=== PATIENT | female | born 1980 | race Asian ===

== ENCOUNTER 2017-11-07 15:01 | Outpatient (CLI) | payer BC ==
[2017-11-07 15:18] LABS: BASOPHILS # (AUTO) 0.1 10^3/uL (0.0-0.1); BASOPHILS % (AUTO) 0.5 %; EOSINOPHILS # (AUTO) 0.1 10^3/uL (0.0-0.7); EOSINOPHILS % (AUTO) 0.9 %; HGB - HEMOGLOBIN 10.3 g/dL (12.0-16.0); LYMPHOCYTES # (AUTO) 2.6 10^3/uL (1.5-3.5); LYMPHOCYTES % (AUTO) 25.9 %; MEAN CORPUSCULAR HEMOGLOBIN 26.4 pg (27.0-31.0); MEAN CORPUSCULAR HGB CONC 33.2 g/dL (32.0-36.0); MEAN CORPUSCULAR VOLUME 79.6 fL (81.0-99.0); MEAN PLATELET VOLUME 7.9 fL (7.9-10.8); MONOCYTES # (AUTO) 0.4 10^3/uL (0.0-1.0); MONOCYTES % (AUTO) 4.3 %; NEUTROPHILS # (AUTO) 6.9 10^3/uL (1.5-6.6); NEUTROPHILS % (AUTO) 68.4 %; PLT - PLATELET COUNT 423 10^3/uL (130-450); RED BLOOD COUNT 3.89 10^6/uL (4.20-5.40); RED CELL DISTRIBUTION WIDTH 14.2 % (12.0-15.0); WHITE BLOOD COUNT 10.1 x10^3/uL (4.8-10.8)
== END 2017-11-07 15:02 | disposition home or self-care (01) ==
LOC: LAB 15:01
PROVIDERS: ATTEND Obstetrics & Gynecology
DX: Z01.812 Encounter for preprocedural laboratory examination (principal); O02.1 Missed abortion
CPT/HCPCS: 36415; 85025

== ENCOUNTER 2017-11-08 06:17 | Day surgery (SDC) | payer BC ==
[2017-11-08 06:49] LABS: HCG UR QUAL POSITIVE
[2017-11-08] MEDS ORDERED: CELECOXIB 100 MG CAPSULE PO ONE (06:58)
[2017-11-08] MEDS ORDERED: LACTATED RINGERS 1,000 ML IV ONE ×3 (07:05→08:46)
--- NOTE | 2017-11-08 07:33 | PREOP HISTORY & PHYSICAL ---
DATE OF ADMISSION: 11/08/2017 IDENTIFICATION: A 37-year-old G2, P2-0-0-1 with a missed . LMP was 09/2017 with 10/18/2017 pole measuring 5 weeks 3 days. HISTORY OF PRESENT ILLNESS: The patient is a patient of [facility] who first established her with us on 10/18/2017. Sure LMP was . At that time, a single viable intrauterine with pole measured 5 weeks 3 days, consistent with LMP. The patient stated that she would like termination of . She represented on 10/24/2017 and received 800 mcg of Cytotec. Followup visit on 10/26/2017 showed that she still had not passed the . She was then given a dose of mifepristone x1 and Cytotec 400 mcg x1 and then 800 mcg x1 a week later. An ultrasound at that time showed a large blood clot filling the uterus. No gestational sac nor pole was seen. A 11/02/2017 visit showed that patient still had a missed AB. She had mifepristone 200 mcg and Cytotec 200 mcg x4 tablets. A bedside ultrasound showed a large clot filling the uterus and what appears to be a pole in the cervical os with absence of cardiac activity. The patient still reported that her blood flow was quite slow and by now had decided she wanted to terminate the now via surgery. I discussed with the patient the risks, benefits, alternatives, indications, expectations of the suction dilatation and curettage empirically including discussion of the risk of hemorrhage, infection, and uterine perforation. After all of the patient's questions were answered to her satisfaction, she verbalized her desire to proceed with surgery. Consent forms have been signed. Currently the patient is doing well and without complaint. She denies any nausea, vomiting, fevers, chills, diarrhea, or constipation. She is planning to visit her in- laws in [place], [place] next week. PAST MEDICAL HISTORY: None. She denies hypertension, diabetes, thyroid disease , asthma or depression. PAST SURGICAL HISTORY 1. 2014: [place] teeth extraction. 2. 2012: delivery secondary to occiput posterior position. Her son weighed 6 pounds 4 ounces. 3. 2004: She had a breast augmentation. ALLERGIES: CECLOR, WHICH SHE HAS HIVES, ITCHING, AND VOMITING. MEDICATIONS: None. SOCIAL HISTORY: Denies any tobacco or illicit drug use. She does consume alcohol on a social basis. Her primary care provider is ALLY Hernandez. [facility] is her pharmacy of choice. Her son is Amanda who is age 5. The patient is , and she is a teacher at the [employer]. Ethnically, she is [place], , and Filipina. PAST OBSTETRICAL HISTORY: delivery x1 at term. She and her are not currently using contraception, and he is considering getting a vasectomy once he gets healthcare insurance. She did fine on low-dose control pills in the past. PAST GYNECOLOGIC HISTORY: One abnormal Pap smear in 2009, and the colposcopy was negative. Pap smears have been normal since. She denies any sexually transmitted diseases. Menses happen on a monthly basis, and she bleeds for 4 days. She denies painful or heavy menses. FAMILY HISTORY: Maternal side shows breast cancer. REVIEW OF SYSTEMS: Negative unless otherwise stated. OBJECTIVE VITAL SIGNS: Weight is 135 pounds. Height is 62 inches. BMI is 24.7. Blood pressure 120/62. GENERAL: The patient is a well-developed, well-nourished, multi-ethnic female in no apparent distress. She is alert and oriented x3. CARDIOVASCULAR: Rate is regular. No murmurs or rubs. PULMONARY: Lungs are clear to auscultation bilaterally. ABDOMEN: Soft, nontender. No masses, rebound, rigidity, or guarding. LABORATORY DATA: On 11/07/2017, white count of 10.1, H and H of 10.3 and 31.0, platelets 423. ASSESSMENT 1. A 37-year-old G2, P1-0-0-1 with a missed less than 5 weeks' gestation. 2. Status post 3 attempts of medical that have failed. PLAN 1. I discussed with the patient the risks, benefits, alternatives, indications , expectations of surgery. After all of her questions were answered to her satisfaction, she verbalized desire to proceed with surgery. Consent forms have been signed. We will proceed to a scheduled 11/08/2017 suction dilatation and curettage. 2. We will need to check the patient's ABO and Rh status. We will give RhoGAM as appropriate. 3. I advised the patient to take Motrin and Tylenol for her main form of pain control. She has been given a prescription for Vicodin #10 tablets for any breakthrough pain. 4. The patient should call should she have any worsening fevers, chills, abdominal pain or vaginal bleeding. 5. The patient is to follow up with myself at [facility] in 2 weeks for a routine postop visit. 6. Anticipate having the patient see Judy Altamirano for contraception after completion of her surgery. TD: 11/07/2017 16:49 MTDLaney
[2017-11-08] MEDS ORDERED: MIDAZOLAM 2 MG/2 ML VIAL IVP ONE (08:00)
[2017-11-08] MEDS ORDERED: PROPOFOL 200 MG/20 ML VIAL IVP ONE (08:00)
[2017-11-08] MEDS ORDERED: fentaNYL 100 MCG/2 ML VIAL IVP ONE (08:00)
[2017-11-08] MEDS ORDERED: LIDOCAINE-MPF 2% 5 ML VIAL IM ONE (08:00)
[2017-11-08] MEDS ORDERED: DOXYCYCLINE 100 MG TABLET PO ONE ×2 (08:00→09:00)
[2017-11-08] MEDS ORDERED: ONDANSETRON 4 MG/2 ML VIAL IVP ONE (08:00)
[2017-11-08] MEDS ORDERED: DEXAMETHASONE 4 MG/ML VIAL IVP ONE (08:00)
--- NOTE | 2017-11-08 08:17 | OPERATIVE REPORT ---
Operative Report - Other Other Information/Narrative: Date of Operation: 11/08/2017 Surgeon: Ellen Villanueva DO FACOG Poly Area Supervisor: None Weblogic Administrator: Pacheco Warren CRNA Anesthesia: LMA Pre-Op Dx: 1. 37 yo 2. Missed AB Post-Op Dx: 1. 37 yo 2. Missed AB Procedure: Suction dilation and curettage Findings: Products of conception Specimens: Endometrial curettings Drains: None EBL: <5 mL Complications: None OP Note Dictation #: [id number]
[2017-11-08] MEDS ORDERED: ONDANSETRON 4 MG/2 ML VIAL ONE (09:13)
[2017-11-08 09:43] VITALS: BP 110/60
--- NOTE | 2017-11-08 11:32 | OPERATIVE REPORT ---
DATE OF OPERATION: 11/08/2017 SURGEON: Ellen Villanueva DO, FACOG. COMPLAINT SUPERVISOR: None. HVAC FIELD SERVICE TECHNICIAN: Basil Warren CRNA. ANESTHESIA: General endotracheal tube. PREOPERATIVE DIAGNOSES 1. A 37-year-old G2, P1-0-0-1, with a less than 5 week intrauterine . 2. Missed . POSTOPERATIVE DIAGNOSES 1. A 37-year-old G2, P1-0-0-1, with a less than 5 week intrauterine . 2. Missed . PROCEDURES: Suction dilatation and curettage. FINDINGS: Products of conception. SPECIMENS REMOVED: Endometrial curettings. DRAINS: None. ESTIMATED BLOOD LOSS: Less than 5 mL. COMPLICATIONS: None. BRIEF HISTORY: This is a patient of [facility] [place], who was found to have an early . She was given several rounds of Cytotec and mifepristone. The patient unfortunately did not pass the spontaneously. At this point in time, she desired a suction dilatation and curettage for definitive completion of her . I discussed the patient the risks, benefits, alternatives, indications, expectations of a suction dilatation and curettage. Included discussion of the risk of hemorrhage, infection and uterine perforation. After all of the patient's questions were answered to her satisfaction, she verbalized her desire to proceed with surgery. Consent forms have been signed. It was noted today that her blood type is O positive, and hemoglobin is 10. OPERATION IN DETAIL: The patient was identified and consented, taken to the operating room where IV access was already in place. She was then given sequential compression devices, which were placed on the lower extremities and turned on. The patient was then given satisfactory LMA anesthesia as per Basil Warren CRNA. The patient was then prepped and draped in normal sterile fashion in lithotomy position using the Yellofin stirrups. Timeout was performed, which correctly identified the patient, site of the procedure, and procedure itself. The patient did receive Celebrex and doxycycline in ambulatory surgery prior to going to the operating room. An open-sided speculum was placed in the vagina, and a single-tooth tenaculum was placed on top of the anterior lip of the cervix. A large blood clot with possible tissue was already dilating the cervix. This was removed with ring forceps. Next, a curved #7 rigid suction curette was used to curette the endometrium. Satisfactory uterine cri was palpated throughout the entire endometrium. No bleeding was seen. All instruments were removed. The cervix and vagina were noted to be hemostatically stable. This concluded the procedure. The patient was then taken to recovery room in stable condition. She will be discharged to home later today after postoperative criteria are met. She will be given another dose of doxycycline prior to going home. The patient already has prescriptions for Vicodin for any breakthrough pain that lofv-tpz-dydgzep medications do not take care of. The patient is to see me at [facility] [place] in 2 weeks for routine postop check. She is to call if she has any worsening, fevers, chills, abdominal pain or vaginal bleeding. TD: 11/08/2017 08:25 [email or web address]
== END 2017-11-08 06:18 | disposition home or self-care (01) ==
LOC: SDS 06:17
PROVIDERS: ATTEND Obstetrics & Gynecology
PROC: 10D17Z9 Manual Extraction of Products of Conception, Retained, Via Natural or Artificial Opening (ICD-10-PCS; principal; 2017-11-08 07:30)
DX: O02.1 Missed abortion (principal)
CPT/HCPCS: 59820; 81025; 86900; 86901; A9270; J7120

== ENCOUNTER 2018-03-24 08:52 | Outpatient (CLI) | payer BC ==
[2018-03-24 09:32] LABS: ALBUMIN 3.7 g/dL (3.2-5.5); BILIRUBIN,TOTAL 0.6 mg/dL (0.2-1.0); CALCIUM 8.8 mg/dL (8.5-10.3); CREATININE 0.9 mg/dL (0.4-1.0); TOTAL PROTEIN 7.4 g/dL (6.7-8.2)
[2018-03-24 09:35] LABS: BASOPHILS # (AUTO) 0.1 10^3/uL (0.0-0.1); BASOPHILS % (AUTO) 0.7 %; EOSINOPHILS # (AUTO) 0.1 10^3/uL (0.0-0.7); EOSINOPHILS % (AUTO) 1.3 %; HGB - HEMOGLOBIN 12.6 g/dL (12.0-16.0); LYMPHOCYTES # (AUTO) 1.9 10^3/uL (1.5-3.5); LYMPHOCYTES % (AUTO) 23.2 %; MEAN CORPUSCULAR HGB CONC 34.2 g/dL (32.0-36.0); MEAN PLATELET VOLUME 8.9 fL (7.9-10.8); MONOCYTES # (AUTO) 0.4 10^3/uL (0.0-1.0); MONOCYTES % (AUTO) 4.7 %; NEUTROPHILS # (AUTO) 5.8 10^3/uL (1.5-6.6); NEUTROPHILS % (AUTO) 70.1 %; PLT - PLATELET COUNT 342 10^3/uL (130-450); RED BLOOD COUNT 4.86 10^6/uL (4.20-5.40); RED CELL DISTRIBUTION WIDTH 14.1 % (12.0-15.0); WHITE BLOOD COUNT 8.2 x10^3/uL (4.8-10.8)
== END 2018-03-24 08:53 | disposition home or self-care (01) ==
LOC: LAB 08:52
PROVIDERS: ATTEND Nurse Practitioner Primary Care
DX: Z00.00 Encounter for general adult medical examination without abnormal findings (principal); D56.3 Thalassemia minor; Z79.899 Other long term (current) drug therapy
CPT/HCPCS: 36415; 80053; 85025

== ENCOUNTER 2018-03-29 09:30 | Outpatient (CLI) | payer BC | END 2018-03-29 09:31 | disposition home or self-care (01) | LOC: LAB.R 09:30 | PROVIDERS: ATTEND Nurse Practitioner Primary Care | DX: G47.62 Sleep related leg cramps (principal); D56.3 Thalassemia minor | CPT/HCPCS: 82728 ==

== ENCOUNTER 2018-12-01 09:31 | Outpatient (CLI) | payer BC ==
[2018-12-01 10:03] LABS: HGB - HEMOGLOBIN 13.2 g/dL (12.0-16.0); MEAN CORPUSCULAR HEMOGLOBIN 26.4 pg (27.0-31.0); MEAN CORPUSCULAR HGB CONC 33.1 g/dL (32.0-36.0); MEAN CORPUSCULAR VOLUME 79.8 fL (81.0-99.0); MEAN PLATELET VOLUME 10.8 fL (7.9-10.8); RED CELL DISTRIBUTION WIDTH 13.8 % (12.0-15.0); WHITE BLOOD COUNT 8.6 x10^3/uL (4.8-10.8)
== END 2018-12-01 09:32 | disposition home or self-care (01) ==
LOC: LAB 09:31
PROVIDERS: ATTEND Nurse Practitioner
DX: R53.83 Other fatigue (principal); D56.3 Thalassemia minor
CPT/HCPCS: 36415; 82728; 85027

== ENCOUNTER 2019-03-24 08:41 | Outpatient (CLI) | payer BC ==
[2019-03-24 09:07] LABS: BASOPHILS % (AUTO) 0.5 %; EOSINOPHILS # (AUTO) 0.2 10^3/uL (0.0-0.7); HGB - HEMOGLOBIN 13.1 g/dL (12.0-16.0); LYMPHOCYTES # (AUTO) 1.6 10^3/uL (1.5-3.5); MEAN CORPUSCULAR HEMOGLOBIN 25.6 pg (27.0-31.0); MEAN CORPUSCULAR HGB CONC 32.3 g/dL (32.0-36.0); MEAN CORPUSCULAR VOLUME 79.1 fL (81.0-99.0); MEAN PLATELET VOLUME 10.5 fL (7.9-10.8); MONOCYTES # (AUTO) 0.5 10^3/uL (0.0-1.0); MONOCYTES % (AUTO) 5.4 %; NEUTROPHILS % (AUTO) 72.7 %; PLT - PLATELET COUNT 337 10^3/uL (130-450); RED BLOOD COUNT 5.12 10^6/uL (4.20-5.40); RED CELL DISTRIBUTION WIDTH 14.2 % (12.0-15.0); WHITE BLOOD COUNT 8.3 x10^3/uL (4.8-10.8)
[2019-03-24 09:20] LABS: ALBUMIN 4.1 g/dL (3.2-5.5); ALBUMIN/GLOBULIN RATIO 1.1 (1.0-2.2); BILIRUBIN,TOTAL 0.7 mg/dL (0.2-1.0); CALCIUM 8.8 mg/dL (8.5-10.3); CREATININE 0.8 mg/dL (0.4-1.0); TOTAL PROTEIN 7.9 g/dL (6.7-8.2)
== END 2019-03-24 08:42 | disposition home or self-care (01) ==
LOC: LAB 08:41
PROVIDERS: ATTEND Nurse Practitioner
DX: Z00.00 Encounter for general adult medical examination without abnormal findings (principal); D56.3 Thalassemia minor
CPT/HCPCS: 36415; 80053; 85025

== ENCOUNTER 2020-07-23 07:16 | Outpatient (CLI) | payer OTHER ==
[2020-07-23 07:43] LABS: BASOPHILS % (AUTO) 0.4 %; EOSINOPHILS # (AUTO) 0.1 10^3/uL (0.0-0.7); EOSINOPHILS % (AUTO) 1.2 %; HCT - HEMATOCRIT 38.2 % (37.0-47.0); HGB - HEMOGLOBIN 12.8 g/dL (12.0-16.0); LYMPHOCYTES # (AUTO) 2.2 10^3/uL (1.5-3.5); LYMPHOCYTES % (AUTO) 21.6 %; MEAN CORPUSCULAR HEMOGLOBIN 26.5 pg (27.0-31.0); MEAN CORPUSCULAR HGB CONC 33.5 g/dL (32.0-36.0); MEAN CORPUSCULAR VOLUME 79.1 fL (81.0-99.0); MEAN PLATELET VOLUME 10.6 fL (7.9-10.8); MONOCYTES # (AUTO) 0.5 10^3/uL (0.0-1.0); MONOCYTES % (AUTO) 4.5 %; NEUTROPHILS # (AUTO) 7.4 10^3/uL (1.5-6.6); NEUTROPHILS % (AUTO) 72.1 %; PLT - PLATELET COUNT 325 10^3/uL (130-450); RED BLOOD COUNT 4.83 10^6/uL (4.20-5.40); RED CELL DISTRIBUTION WIDTH 14.1 % (12.0-15.0); WHITE BLOOD COUNT 10.3 x10^3/uL (4.8-10.8)
[2020-07-23 07:52] LABS: ALBUMIN 4.3 g/dL (3.2-5.5); ALBUMIN/GLOBULIN RATIO 1.4 (1.0-2.2); ALKALINE PHOSPHATASE 46 IU/L (42-121); ALT ALANINE AMINOTRANSFERASE 19 IU/L (10-60); AST ASPARTATE AMINOTRANSFERASE 16 IU/L (10-42); BILIRUBIN,TOTAL 0.6 mg/dL (0.2-1.0); BUN - BLOOD UREA NITROGEN 15 mg/dL (6-20); CALCIUM 9.1 mg/dL (8.5-10.3); CARBON DIOXIDE - CO2 24 mmol/L (21-32); CHLORIDE 102 mmol/L (101-111); CHOL/HDL RATIO 3.2 (<4.4); CHOLESTEROL 208 mg/dL; CREATININE 0.7 mg/dL (0.4-1.0); GFR - MDRD 94 (>89); GLUCOSE 92 mg/dL (70-100); HDL CHOLESTEROL 66 mg/dL; LDL CHOLESTEROL,CALCULATED 126 mg/dL; LDL/HDL RATIO 1.9 (<4.4); POTASSIUM 3.7 mmol/L (3.5-5.0); SODIUM 139 mmol/L (135-145); TOTAL PROTEIN 7.4 g/dL (6.7-8.2); TRIGLYCERIDES 78 mg/dL; VLDL CHOLESTEROL 16 mg/dL
[2020-07-23 08:03] LABS: THYROID STIMULATING HORMONE 1.27 uIU/mL (0.34-5.60)
== END 2020-07-23 07:17 | disposition home or self-care (01) ==
LOC: LAB 07:16
PROVIDERS: ATTEND Nurse Practitioner
DX: Z00.00 Encounter for general adult medical examination without abnormal findings (principal); G47.62 Sleep related leg cramps; R53.83 Other fatigue; R63.5 Abnormal weight gain; D56.3 Thalassemia minor
CPT/HCPCS: 36415; 80053; 80061; 83721; 84443; 85025

== ENCOUNTER 2020-09-17 07:18 | Outpatient (CLI) | payer OTHER ==
[2020-09-17 07:55] LABS: BASOPHILS % (AUTO) 0.5 %; EOSINOPHILS # (AUTO) 0.1 10^3/uL (0.0-0.7); EOSINOPHILS % (AUTO) 1.1 %; HCT - HEMATOCRIT 41.7 % (37.0-47.0); HGB - HEMOGLOBIN 13.7 g/dL (12.0-16.0); LYMPHOCYTES # (AUTO) 2.5 10^3/uL (1.5-3.5); LYMPHOCYTES % (AUTO) 28.2 %; MEAN CORPUSCULAR HEMOGLOBIN 25.8 pg (27.0-31.0); MEAN CORPUSCULAR HGB CONC 32.9 g/dL (32.0-36.0); MEAN CORPUSCULAR VOLUME 78.7 fL (81.0-99.0); MEAN PLATELET VOLUME 10.3 fL (7.9-10.8); MONOCYTES # (AUTO) 0.5 10^3/uL (0.0-1.0); MONOCYTES % (AUTO) 5.7 %; NEUTROPHILS # (AUTO) 5.6 10^3/uL (1.5-6.6); NEUTROPHILS % (AUTO) 64.2 %; PLT - PLATELET COUNT 365 10^3/uL (130-450); RED CELL DISTRIBUTION WIDTH 14.3 % (12.0-15.0); WHITE BLOOD COUNT 8.7 x10^3/uL (4.8-10.8)
[2020-09-17 07:58] LABS: ALBUMIN 4.5 g/dL (3.2-5.5); ALBUMIN/GLOBULIN RATIO 1.3 (1.0-2.2); BILIRUBIN,DIRECT 0.1 mg/dL (0.1-0.5); BILIRUBIN,TOTAL 0.6 mg/dL (0.2-1.0); CALCIUM 9.1 mg/dL (8.5-10.3); CREATININE 0.8 mg/dL (0.4-1.0); POTASSIUM 4.1 mmol/L (3.5-5.0); TOTAL PROTEIN 7.9 g/dL (6.7-8.2)
== END 2020-09-17 07:19 | disposition home or self-care (01) ==
LOC: LAB 07:18
PROVIDERS: ATTEND Physician Assistant
DX: L28.1 Prurigo nodularis (principal); L29.8 Other pruritus
CPT/HCPCS: 36415; 80053; 80076; 82248; 85025

== ENCOUNTER 2021-08-10 08:21 | Outpatient (CLI) | payer OTHER ==
[2021-08-10 08:34] LABS: BASOPHILS % (AUTO) 0.5 %; EOSINOPHILS # (AUTO) 0.1 10^3/uL (0.0-0.7); EOSINOPHILS % (AUTO) 1.6 %; HCT - HEMATOCRIT 39.7 % (37.0-47.0); HGB - HEMOGLOBIN 13.2 g/dL (12.0-16.0); LYMPHOCYTES % (AUTO) 24.8 %; MEAN CORPUSCULAR HEMOGLOBIN 26.1 pg (27.0-31.0); MEAN CORPUSCULAR HGB CONC 33.2 g/dL (32.0-36.0); MEAN CORPUSCULAR VOLUME 78.6 fL (81.0-99.0); MEAN PLATELET VOLUME 10.4 fL (7.9-10.8); MONOCYTES # (AUTO) 0.5 10^3/uL (0.0-1.0); MONOCYTES % (AUTO) 6.7 %; NEUTROPHILS # (AUTO) 5.3 10^3/uL (1.5-6.6); NEUTROPHILS % (AUTO) 66.2 %; PLT - PLATELET COUNT 335 10^3/uL (130-450); RED BLOOD COUNT 5.05 10^6/uL (4.20-5.40); RED CELL DISTRIBUTION WIDTH 13.9 % (12.0-15.0); WHITE BLOOD COUNT 8.1 x10^3/uL (4.8-10.8)
[2021-08-10 08:58] LABS: ALBUMIN 4.1 g/dL (3.2-5.5); ALBUMIN/GLOBULIN RATIO 1.2 (1.0-2.2); ALKALINE PHOSPHATASE 51 IU/L (42-121); ALT ALANINE AMINOTRANSFERASE 18 IU/L (10-60); AST ASPARTATE AMINOTRANSFERASE 16 IU/L (10-42); BILIRUBIN,TOTAL 0.7 mg/dL (0.2-1.0); BUN - BLOOD UREA NITROGEN 15 mg/dL (6-20); CALCIUM 8.9 mg/dL (8.5-10.3); CARBON DIOXIDE - CO2 28 mmol/L (21-32); CHLORIDE 101 mmol/L (101-111); CHOL/HDL RATIO 3.5 (<4.4); CHOLESTEROL 223 mg/dL; CREATININE 0.6 mg/dL (0.4-1.0); GFR - MDRD 111 (>89); GLUCOSE 96 mg/dL (70-100); HDL CHOLESTEROL 64 mg/dL; LDL CHOLESTEROL,CALCULATED 141 mg/dL; LDL/HDL RATIO 2.2 (<4.4); POTASSIUM 4.2 mmol/L (3.5-5.0); SODIUM 135 mmol/L (135-145); TOTAL PROTEIN 7.5 g/dL (6.7-8.2); TRIGLYCERIDES 90 mg/dL; VLDL CHOLESTEROL 18 mg/dL
[2021-08-10 09:09] LABS: THYROID STIMULATING HORMONE 1.42 uIU/mL (0.34-5.60)
== END 2021-08-10 08:22 | disposition home or self-care (01) ==
LOC: LAB 08:21
PROVIDERS: ATTEND Registered Nurse
DX: D56.3 Thalassemia minor (principal); Z13.228 Encounter for screening for other metabolic disorders; Z13.220 Encounter for screening for lipoid disorders; Z13.29 Encounter for screening for other suspected endocrine disorder
CPT/HCPCS: 36415; 80053; 80061; 83721; 84443; 85025

== ENCOUNTER 2022-08-30 07:28 | Outpatient (CLI) | payer OTHER ==
[2022-08-30 07:45] LABS: BASOPHILS % (AUTO) 0.4 %; EOSINOPHILS # (AUTO) 0.1 10^3/uL (0.0-0.7); EOSINOPHILS % (AUTO) 1.6 %; HCT - HEMATOCRIT 37.9 % (37.0-47.0); HGB - HEMOGLOBIN 12.6 g/dL (12.0-16.0); LYMPHOCYTES # (AUTO) 2.3 10^3/uL (1.5-3.5); LYMPHOCYTES % (AUTO) 27.3 %; MEAN CORPUSCULAR HEMOGLOBIN 25.9 pg (27.0-31.0); MEAN CORPUSCULAR HGB CONC 33.2 g/dL (32.0-36.0); MEAN CORPUSCULAR VOLUME 77.8 fL (81.0-99.0); MEAN PLATELET VOLUME 10.2 fL (7.9-10.8); MONOCYTES # (AUTO) 0.5 10^3/uL (0.0-1.0); MONOCYTES % (AUTO) 5.6 %; NEUTROPHILS # (AUTO) 5.4 10^3/uL (1.5-6.6); NEUTROPHILS % (AUTO) 64.9 %; PLT - PLATELET COUNT 344 10^3/uL (130-450); RED BLOOD COUNT 4.87 10^6/uL (4.20-5.40); RED CELL DISTRIBUTION WIDTH 13.9 % (12.0-15.0); WHITE BLOOD COUNT 8.3 x10^3/uL (4.8-10.8)
[2022-08-30 08:01] LABS: ALBUMIN 3.8 g/dL (3.2-5.5); ALBUMIN/GLOBULIN RATIO 1.2 (1.0-2.2); ALKALINE PHOSPHATASE 44 IU/L (42-121); ALT ALANINE AMINOTRANSFERASE 16 IU/L (10-60); AST ASPARTATE AMINOTRANSFERASE 15 IU/L (10-42); BILIRUBIN,TOTAL 0.6 mg/dL (0.2-1.0); BUN - BLOOD UREA NITROGEN 13 mg/dL (6-20); CALCIUM 8.7 mg/dL (8.5-10.3); CARBON DIOXIDE - CO2 26 mmol/L (21-32); CHLORIDE 107 mmol/L (101-111); CHOL/HDL RATIO 3.7 (<4.4); CHOLESTEROL 198 mg/dL; CREATININE 0.7 mg/dL (0.4-1.0); GFR - MDRD 93 (>89); GLUCOSE 92 mg/dL (70-100); HDL CHOLESTEROL 53 mg/dL; LDL CHOLESTEROL,CALCULATED 133 mg/dL; LDL/HDL RATIO 2.5 (<4.4); POTASSIUM 4.1 mmol/L (3.5-5.0); SODIUM 140 mmol/L (135-145); TOTAL PROTEIN 7.1 g/dL (6.7-8.2); TRIGLYCERIDES 61 mg/dL; VLDL CHOLESTEROL 12 mg/dL
[2022-08-30 08:12] LABS: THYROID STIMULATING HORMONE 1.22 uIU/mL (0.34-5.60)
== END 2022-08-30 07:29 | disposition home or self-care (01) ==
LOC: LAB 07:28
PROVIDERS: ATTEND Registered Nurse
DX: Z79.899 Other long term (current) drug therapy (principal); Z13.220 Encounter for screening for lipoid disorders; Z13.29 Encounter for screening for other suspected endocrine disorder
CPT/HCPCS: 36415; 80053; 80061; 83721; 84443; 85025

== ENCOUNTER 2022-10-04 07:45 | Outpatient (CLI) | payer OTHER ==
[2022-10-04 08:36] LABS: THYROID STIMULATING HORMONE 1.22 uIU/mL (0.34-5.60)
[2022-10-04 08:42] LABS: PROLACTIN 5.75 ng/mL
[2022-10-04 09:04] LABS: FOLLICLE STIMULATING HORMONE 8.08 mIU/mL
[2022-10-04 09:05] LABS: LUTEINIZING HORMONE 7.24 mIU/mL
[2022-10-05 05:08] LABS: ESTRADIOL 42.2 pg/mL (.); PROGESTERONE 0.2 ng/mL (.); SEX HORM BINDING GLOB SERUM 88.2 nmol/L (24.6-122.0)
[2022-10-06 14:09] LABS: FREE TESTOSTERONE(DIRECT) 3.5 pg/mL (0.0-4.2)
== END 2022-10-04 07:46 | disposition home or self-care (01) ==
LOC: LAB 07:45
PROVIDERS: ATTEND Registered Nurse
DX: N93.9 Abnormal uterine and vaginal bleeding, unspecified (principal)
CPT/HCPCS: 36415; 82397; 82627; 82670; 83001; 83002; 83498; 84144; 84146; 84270; 84402; 84403; 84443

== ENCOUNTER 2022-10-20 13:41 | Outpatient (CLI) | payer OTHER ==
--- NOTE | 2022-10-21 13:23 | Ultrasound Report ---
PROCEDURE: Pelvic w/Transvaginal INDICATIONS: ABN UTERINE BLEEDING TECHNIQUE: Real-time scanning was performed of the pelvic organs, with image documentation. Additional endovagi nal scanning was necessary due to incomplete visualization of the adnexal and endometrial structures by transabdominal scanning. COMPARISON: None. FINDINGS: Uterus: Uterus is anteverted and normal in size at 8.5 x 3.6 x 5.7 cm. The myometrium is homogeneou s. The endometrium measures 11.1 mm in combined thickness. Ovaries: The left ovary measures 2.6 x 1.9 x 3.9 cm, with a calculated ovarian volume of 9.9 cc. Th ere is a resolving corpus luteum measuring 1.6 x 1.6 x 2.1 cm. The right ovary measures 1.9 x 1.7 x 1.8 cm, with a calculated ovarian volume of 2.9 cc. The ovaries have a normal sonographic appearance. Less than 12 follicles can be seen in each ovary. No adnexal masses are seen. No cystic lesions measuring greater than 3 cm. Other: There is a lyqps-oh-ockclyda amount of free pelvic fluid in cul-de-sac. IMPRESSION: 1. A resolving corpus luteal cyst in the left ovary. 2. A itqri-de-sjshdycr amount of free fluid, which is slightly above physiological limits. Etiology u ncertain. Recommend a short-term follow-up pelvic ultrasound in 6-12 weeks. Reviewed by: Charla Vera MD on 10/21/2022 1:22 PM PDT Approved by: Charla Vera MD on 10/21/2022 1:22 PM PDT Station ID: [id number]
== END 2022-10-20 13:42 | disposition home or self-care (01) ==
LOC: DI 13:41
PROVIDERS: ATTEND Nurse Practitioner
DX: N93.9 Abnormal uterine and vaginal bleeding, unspecified (principal); N83.12 Corpus luteum cyst of left ovary

== ENCOUNTER 2022-10-20 13:42 | Outpatient (CLI) | payer OTHER ==
--- NOTE | 2022-10-21 12:17 | Mammography Report ---
BILATERAL DIGITAL SCREENING MAMMOGRAM 3D/2D WITH AUGMENTATION: 10/20/2022 CLINICAL: Baseline exam. Routine screening. No prior exams were available for comparison. There are scattered areas of fibroglandular density in both breasts (category b / 25%-50% glandular t issue). Bilateral breast implants are present. No significant masses, calcifications, or other findings are seen in either breast. IMPRESSION: NEGATIVE There is no mammographic evidence of malignancy. A 1 year screening mammogram is recommended. Based on the Tyrer Cuzick model (a risk assessment model) the patients lifetime risk is 10.0% and he r 10 year risk is 1.2%. According to the ACR, ACS, and NCCN guidelines, an annual breast MRI exam rebecca ng with mammogram is recommended if the patients lifetime risk is 20% or greater. This exam was interpreted at Station ID: [id number]. NOTE: For mammograms, a report in lay terms will be sent to the patient. Approximately 15% of breast malignancies will not be visualized mammographically. In the management of a palpable breast mass, a negative mammogram must not discourage biopsy of a clinically suspicious lesion. Electronically Signed By: Juan Manuel [email or web address]/[email or web address]:10/20/2022 17:46:06 letter sent: No_Letter ACR BI-RADS Category 1: Negative 3341F PARENCHYMAL PATTERN: (A) - The breast(s) demonstrate(s) scattered fibroglandular densities. BI-RADS CATEGORY: (1) - 1 Mammogram [id number] 1 year screening LATERALITY: (B)
== END 2022-10-20 13:43 | disposition home or self-care (01) ==
LOC: DI 13:42
PROVIDERS: ATTEND Nurse Practitioner
DX: Z12.31 Encounter for screening mammogram for malignant neoplasm of breast (principal)

== ENCOUNTER 2022-11-03 14:59 | Outpatient (CLI) | payer OTHER ==
--- NOTE | 2022-11-03 16:54 | Ultrasound Report ---
PROCEDURE: Pelvic w/Transvaginal INDICATIONS: ABN UTERINE BLEEDING TECHNIQUE: Real-time scanning was performed of the pelvic organs, with image documentation. Additional endovagi nal scanning was necessary due to incomplete visualization of the adnexal and endometrial structures by transabdominal scanning. COMPARISON: 10/20/2022 FINDINGS: Uterus: Uterus is anteverted and normal in size at 7.7 x 3.7 x 4.0 cm. The myometrium is homogeneou s. The endometrium measures 2 mm in combined thickness. No focal uterine mass Ovaries: The right ovary measures 2.0 x 1.7 x 1.5 cm, with a calculated ovarian volume of 2.3 cc. T he left ovary measures 2.3 x 1.7 x 1.5 cm, with a calculated ovarian volume of 3.1 cc. The ovaries h ave a normal sonographic appearance. Less than 12 follicles can be seen in each ovary. Millimeter anechoic focus within the left ovary. No cystic lesions measuring greater than 3 cm. Other: No pathologic free abdominal or pelvic fluid. Resolution of previously seen fluid within the cul-de-sac. IMPRESSION: No acute process. Reviewed by: Tanmay Hurd MD on 11/03/2022 4:52 PM PDT Approved by: Tanmay Hurd MD on 11/03/2022 4:52 PM PDT Station ID: [id number]
== END 2022-11-03 15:00 | disposition home or self-care (01) ==
LOC: DI 14:59
PROVIDERS: ATTEND Nurse Practitioner
DX: N93.9 Abnormal uterine and vaginal bleeding, unspecified (principal)

== ENCOUNTER 2023-10-07 10:26 | Outpatient (CLI) | payer OTHER ==
[2023-10-07 10:54] LABS: ALBUMIN 4.3 g/dL (3.2-5.5); ALBUMIN/GLOBULIN RATIO 1.7 (1.0-2.2); BILIRUBIN,TOTAL 0.4 mg/dL (0.2-1.0); CALCIUM 9.3 mg/dL (8.5-10.3); CREATININE 0.7 mg/dL (0.6-1.3); POTASSIUM 3.9 mmol/L (3.5-4.5); TOTAL PROTEIN 6.9 g/dL (6.4-8.9)
== END 2023-10-07 10:27 | disposition home or self-care (01) ==
LOC: LAB 10:26
PROVIDERS: ATTEND Nurse Practitioner
DX: R60.0 Localized edema (principal)
CPT/HCPCS: 36415; 80053